=== PATIENT | female | born 1965 | race Two or more races ===

== ENCOUNTER 2020-11-04 22:08 | Emergency (ER) | payer OTHER ==
[~2020-11-04] VITALS: Ht 170.2 cm; Wt 104.5 kg
--- NOTE | 2020-11-05 00:06 | NUR ---
SURGICAL ASSISTANT: PT. TO ROOM FROM LOBBY AT THIS TIME.
[2020-11-05] MEDS ORDERED: OXYcodone/APAP 5/325MG TABLET PO ONE (01:00)
[2020-11-05] MEDS ORDERED: OXYcodone/APAP 5/325MG TABLET ONE (01:24)
--- NOTE | 2020-11-05 01:28 | NUR ---
PT MEDICATED PER MAY. TO CT VIA CART. FAMILY ATBS.
[2020-11-05] MEDS ORDERED: HYDROmorphone 1 MG/ML, 1ML INJ IM ONE (04:00)
[2020-11-05] MEDS ORDERED: HYDROmorphone 2 MG/ML, 1ML ONE ×2 (04:08→04:12)
--- NOTE | 2020-11-05 04:41 | NUR ---
PATIENT GAVE PERMISSION TO SPEAK WITH NADJA AGUILAR ABOUT CT RESULTS. SPOKE WITH [employer] SGT ON DUTY AND REPORTED SITUATION
[2020-11-05 05:44] VITALS: BP 100/63
== END 2020-11-05 05:49 | disposition home or self-care (01) ==
LOC: ED 11-05 00:40
DX: S82.252A Displaced comminuted fracture of shaft of left tibia, initial encounter for closed fracture (principal); X58.XXXA Exposure to other specified factors, initial encounter; Y93.89 Activity, other specified; Y92.89 Other specified places as the place of occurrence of the external cause; Y99.8 Other external cause status
CPT/HCPCS: 29505; 73030; 73564; 73700; 96372; 99285; J1170